=== PATIENT | male | born 1950 | race Caucasian/White ===

== ENCOUNTER 2017-02-27 16:18 | Inpatient (IN) | payer OTHER, MEDICARE ==
--- NOTE | ~2017-02-27 | DS ---
Discharge Summary [facility] [address] [place]. [address] NAME: MOOK ESTEVEZ : 52 STATUS : DIS IN PAT#: [id number] AGE: 66 ADM/REG DATE : 02/27/17 MR#: [id number] REPORT SERV DATE: 03/04/17 DICTATED BY: LANCE MARMOLEJO DATE: 03/03/17 REPORT STATUS : Draft TRANSCRIBED BY: MODL DATE: 03/03/17 ADMISSION DATE: 02/27/2017 DISCHARGE DATE: 03/03/2017 DISCHARGE DIAGNOSES: 1. Acute left foot cellulitis. 2. Foreign body in the left heel, status post removal. 3. Leukocytosis. 4. New onset of diabetes. 5. Urinary tract infection with Klebsiella. 6. Hypertension. 7. Gastroesophageal reflux disease. CONSULTANTS: None. PROCEDURES: None. HOSPITAL COURSE: This is a 66-year-old gentleman who was admitted to the hospital with a left foot cellulitis. For details, please refer to excellent H and P dictated by Dr. Christopher Hardin. In summary, the patient was admitted and he was started on IV antibiotics to include vancomycin and cefepime. The patient was also found to have a urinary tract infection on admission, and thus the patient was treated for both the urinary tract infection as well as left leg cellulitis. The patient was also seen by Wound Care for the small wound left behind after removing a small foreign body. His wound on the bottom of his heel was actually very small and the main issue was his left leg cellulitis. The patient did respond really well to IV antibiotic therapy. The patient's cellulitis margin visibly decreased on daily basis to almost disappearing by the day of discharge. During the hospital, the patient's urine culture came back positive for pansensitive Klebsiella. The patient's wound culture grew Enterococcus that was also pansensitive. The patient was seen by Physical Therapy, who recommended discharge to home with home health. The patient is now being discharged home with home health including physical therapy and wound care. It was emphasized to the patient that with his new onset of diabetes, the patient may get further complications with the cellulitis as well as a small wound that he has and it would be crucial to have appropriate wound care. For his new onset of diabetes, the patient's hemoglobin A1c was found to be 7.7. The patient was started on oral metformin with fair glucose control with his blood sugars averaging less than 200 during this hospital stay without needing additional sliding scale NovoLog coverage. The patient was given diabetic education and the patient is being discharged to home with a prescription for blood glucose monitor, lancets, and testing strips. DISPOSITION: Home. DISCHARGE MEDICATIONS: 1. Metformin 500 mg p.o. b.i.d. Discharge Summary [address] [address] NAME: MOOK ESTEVEZ : 52 STATUS : DIS IN PAT#: [id number] AGE: 66 ADM/REG DATE : 02/27/17 MR#: [id number] REPORT SERV DATE: 03/04/17 DICTATED BY: LANCE MARMOLEJO DATE: 03/03/17 REPORT STATUS : Draft TRANSCRIBED BY: CECIL DATE: 03/03/17 2. Levaquin 750 mg p.o. daily times additional four days. Otherwise, no medication changes. FOLLOWUP: Please follow up with PCP in the next one to two weeks. A total of 25 minutes spent in coordinating this patient's discharge today. DICTATED BY: Lance Marmolejo MD Bibi/CECIL Lance Marmolejo MD / [id number] CC: Lance Marmolejo MD
--- NOTE | ~2017-02-27 | HP ---
History And Physical [place] [id number] [facility] [place]. [address] NAME: MOOK RAMOS : 52 STATUS : ADM IN PAT#: [id number] AGE: 66 ADM/REG DATE : 02/27/17 MR#: [id number] REPORT SERV DATE: 02/28/17 DICTATED BY: CHRISTOPHER MCKEON DATE: 02/27/17 REPORT STATUS : Draft TRANSCRIBED BY: MODL DATE: 02/27/17 DATE OF ADMISSION: 02/27/2017 CHIEF COMPLAINT: Left foot pain, swelling, and redness. HISTORY OF PRESENT ILLNESS: This is a 66-year-old male with a history of diabetes mellitus, hypertension, gastroesophageal reflux disease, who presents to the emergency room at [facility] with the above-mentioned complaint. History is obtained from the patient and reviewing data available on the [employer] system. I spoke to Dr. Hoskins, the ER physician as well. 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 But on Monday, his foot started hurting, there was swelling in the foot around the ankle and he thought he had an infection. He did not know that there was a foreign body, did not feel anything because of his diabetic foot. He, however, knew there was an infection going on. He went to the walk-in clinic where he goes for his primary care, was looked there and they immediately asked him to go over to the emergency room right away. In the emergency room, initial workup revealed cellulitis of his left foot along with a urinary tract infection and leukocytosis. He had hyperglycemia as well. X-ray of his left foot showed a small piece of foreign body remaining in the foot and this was removed by forceps and gentle teasing by the ER physician. A repeat foot x-ray was taken and it is clear. Hospitalist Service is asked to admit him for diabetic foot ulcer, IV antibiotics, and care. At the time of my evaluation, he denied any chest pain, palpitations, or orthopnea. He had no cough, hemoptysis, night sweats, or weight loss. He did not have any recent falls or loss of consciousness. No history of fevers, chills, nausea, vomiting, or diarrhea. No history of hematemesis, hematochezia, or hematuria. No other history of recent travel or exposures other than those mentioned above. PAST MEDICAL HISTORY: Significant for history of hypertension and gastroesophageal reflux disease. He says he has never been formally diagnosed with diabetes, although he has family history on both sides his parents. SOCIAL HISTORY: He uses snuff and has been using it for many years. Before that he used to smoke a pipe as well. 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 FAMILY HISTORY: Noncontributory other than the strong family history of diabetes. REVIEW OF SYSTEMS: As in the history of present illness. All other systems were reviewed in detail and are quite unremarkable. History And Physical [address] [place]. [address] NAME: MOOK RAMOS : 52 STATUS : ADM IN [facility]#: [id number] AGE: 66 ADM/REG DATE : 02/27/17 MR#: [id number] REPORT SERV DATE: 02/28/17 DICTATED BY: CHRISTOPHER MCKEON DATE: 02/27/17 REPORT STATUS : Draft TRANSCRIBED BY: CECIL DATE: 02/27/17 PHYSICAL EXAMINATION: GENERAL: This is a pleasant 66-year-old, not in any acute distress. HEENT: His head is atraumatic, normocephalic. He is alert, awake, and oriented to time, place, and person. Pupils are equal, reacting to light, and accommodating. External ocular muscles are intact. Membranes are moist and pink. Sclerae are nonicteric. NECK: Supple with no jugular venous distention, lymphadenopathy, or thyromegaly. LUNGS: Clear to auscultation with no wheezes, rubs, or crackles. HEART: Heart sounds were regular with no murmurs, rubs, or gallops. ABDOMEN: Soft, nontender. Bowel sounds are present. EXTREMITIES: Show swelling, redness in the left lower extremity and cellulitis coming all the way almost up to the knee. There is a small puncture wound in the sole of the foot at the heel with some purulent appearing discharge as well. The right lower extremity appears to be normal. There is no cyanosis, clubbing, or effusions. NEUROLOGIC: Appears to be grossly intact. No focal sensory or motor deficits. He has diabetic neuropathy in both legs. VITAL SIGNS: His vital signs today show a temperature of 99.0, pulse 81, respirations 18 a minute, blood pressure is 146/70, oxygen saturations are 98%, breathing 2 L of oxygen via nasal cannula. LABORATORY DATA: Reviewed on the [employer] system showed a sodium of 133, potassium of 4.1, chloride 100, CO2 of 24, BUN was 15 with a creatinine of 1.10, and glucose was 292. [place] [address], hemoglobin was 13.3 with a hematocrit of 37.7, and platelet count was 284,000. His MCV was 87.1. Urinalysis showed large leukocyte esterase, nitrite was negative. There were greater than 182 wbc's and occasional bacteria. X-ray of the left foot was reviewed by me on the PACS today and interpreted by me. The initial picture showed a foreign body which was just under the skin peripherally. The repeat film was also reviewed. IMPRESSION: 1. Acute left foot cellulitis. 2. Foreign body in the left foot. 3. Leukocytosis. 4. Diabetes mellitus with hyperglycemia. 5. Urinary tract infection. 6. Hypertension. 7. Gastroesophageal reflux disease. PLAN: We will admit Mr. Ramos to the Hospitalist Service with defensive monitoring. We will obtain cultures, start him on empiric IV antibiotics. We will start him on vancomycin and Zosyn intravenously for now with full coverage for the Staph and Pseudomonas as well. A small foreign body retained in his left foot in the heel was removed by gentle teasing and removal with a forceps in the emergency room. This was done by Dr. Hoskins. We will go ahead and check his lactate, procalcitonin, and cortisol levels. We will also get blood sugars under control with NovoLog given subcutaneously per sliding scale at the level 3 or above. I will go ahead and check his A1c as well. We will follow his home medications and treatments. Place him on unfractionated heparin for DVT prophylaxis while here. I have History And Physical [address] [place]. [address] NAME: MOOK RAMOS : 52 STATUS : ADM IN [facility]#: [id number] AGE: 66 ADM/REG DATE : 02/27/17 MR#: [id number] REPORT SERV DATE: 02/28/17 DICTATED BY: CHRISTOPHER MCKEON DATE: 02/27/17 REPORT STATUS : Draft TRANSCRIBED BY: CECIL DATE: 02/27/17 discussed the above plans with the patient. His questions were answered and he is agreeable to the above recommendations. Hospitalist Service will be following him during his stay here. /CECIL Christopher Mckeon M.D. / [id number] CC: Ta Najera MD
[2017-02-27 16:39] LABS: BASOPHILS 0.2 %; BASOPHILS ABSOLUTE 0.04 10/3/uL (0.0-0.16); EOSINOPHILS 0.4 %; EOSINOPHILS ABSOLUTE 0.09 10/3/uL (0.0-0.53); ER CBC TAT 0 Hrs 07 Mins; HEMATOCRIT 37.7 % (40.0-51.0); HEMOGLOBIN 13.3 g/dL (13.6-17.8); IMMATURE GRANULOCYTES 0.8 %; IMMATURE GRANULOCYTES ABSOLUTE 0.18 10/3/uL (0.0-0.11); LYMPHOCYTES 7.6 %; LYMPHOCYTES ABSOLUTE 1.72 10/3/uL (0.67-4.30); MEAN CORPUS HGB CONC 35.3 g/dL (32.0-36.0); MEAN CORPUSCULAR HEMOGLOB 30.7 pg (26.0-34.0); MEAN CORPUSCULAR VOLUME 87.1 fL (80-100); MEAN PLATELET VOLUME 9.7 fL (9.2-13.0); MONOCYTES 8.7 %; MONOCYTES ABSOLUTE 1.97 10/3/uL (0.21-1.20); NEUTROPHILS 82.3 %; NEUTROPHILS ABSOLUTE 18.53 10/3/uL (2.02-8.40); PLATELET COUNT 284 10/3/uL (150-400); RED CELL COUNT 4.33 10/6/uL (4.7-6.1); WHITE BLOOD CELLS 22.5 10/3/uL (4.5-10.5)
[2017-02-27 16:43] LABS: MANUAL DIFF NO %
[2017-02-27 16:54] LABS: A/G RATIO 0.9 (0.7-1.9); ALBUMIN 3.3 G/DL (3.5-5.0); ALKALINE PHOSPHATASE 86 U/L (45-117); BUN (BLOOD UREA NITROGEN) 15 MG/DL (6-23); CALCIUM, SERUM 8.7 MG/DL (8.5-10.4); CHLORIDE, SERUM 100 MMOL/L (96-112); CO2 (CARBON DIOXIDE) 24 MMOL/L (24-34); GFR AFRICAN AMERICAN 81 ML/MIN (>=60); GFR NON AFRICAN AMERICAN 70 ML/MIN (>=60); GLOBULIN 3.7 G/DL (2.5-4.1); GLUCOSE, SERUM 292 MG/DL (60-99); POTASSIUM, SERUM 4.1 MMOL/L (3.5-5.3); SGOT(AST) 11 U/L (5-40); SGPT(ALT) 19 U/L (5-65); SODIUM, SERUM 133 MMOL/L (135-148); TOTAL BILIRUBIN 0.9 MG/DL (0-1.2)
[2017-02-27 16:57] LABS: ASCORBIC ACID (UR NOT ORDER) NEG (NEG); BILIRUBIN, URINE NEGATIVE (NEG); ER URINALYSIS TAT 0 Hrs 18 Mins; KETONE, URINE NEGATIVE (NEG); LEUKOCYTE ESTERASE(NOT OR LARGE (NEG); NITRITE (URINE) NEG (NEG); WBC (NOT ORDERED) (RFLEX) > 182 (0-5)
[2017-02-27] MEDS ORDERED: PRILO PO (21:42)
[2017-02-27] MEDS ORDERED: ALLEGRA180 PO (21:43)
[2017-02-28 09:39] LABS: BASOPHILS 0.3 %; BASOPHILS ABSOLUTE 0.05 10/3/uL (0.0-0.16); EOSINOPHILS ABSOLUTE 0.32 10/3/uL (0.0-0.53); HEMATOCRIT 35.9 % (40.0-51.0); HEMOGLOBIN 12.3 g/dL (13.6-17.8); IMMATURE GRANULOCYTES 1.1 %; IMMATURE GRANULOCYTES ABSOLUTE 0.18 10/3/uL (0.0-0.11); LYMPHOCYTES 13.7 %; LYMPHOCYTES ABSOLUTE 2.18 10/3/uL (0.67-4.30); MEAN CORPUS HGB CONC 34.3 g/dL (32.0-36.0); MEAN CORPUSCULAR HEMOGLOB 30.2 pg (26.0-34.0); MEAN CORPUSCULAR VOLUME 88.2 fL (80-100); MEAN PLATELET VOLUME 9.6 fL (9.2-13.0); MONOCYTES 6.2 %; MONOCYTES ABSOLUTE 0.98 10/3/uL (0.21-1.20); NEUTROPHILS 76.7 %; NEUTROPHILS ABSOLUTE 12.15 10/3/uL (2.02-8.40); PLATELET COUNT 256 10/3/uL (150-400); RBC DISTRIBUTION WIDTH 14.1 % (12.0-16.0); RED CELL COUNT 4.07 10/6/uL (4.7-6.1); WHITE BLOOD CELLS 15.9 10/3/uL (4.5-10.5)
[2017-02-28 09:41] LABS: MANUAL DIFF NO %
[2017-02-28 09:49] LABS: BUN (BLOOD UREA NITROGEN) 15 MG/DL (6-23); CALCIUM, SERUM 8.2 MG/DL (8.5-10.4); CHLORIDE, SERUM 102 MMOL/L (96-112); CO2 (CARBON DIOXIDE) 25 MMOL/L (24-34); CREATININE 0.79 MG/DL (0.70-1.30); GFR AFRICAN AMERICAN 109 ML/MIN (>=60); GFR NON AFRICAN AMERICAN 94 ML/MIN (>=60); GLUCOSE, SERUM 251 MG/DL (60-99); PHOSPHORUS, SERUM 2.6 MG/DL (2.5-4.5); POTASSIUM, SERUM 3.9 MMOL/L (3.5-5.3); SODIUM, SERUM 133 MMOL/L (135-148)
[2017-03-01 03:47] LABS: BASOPHILS 0.4 %; BASOPHILS ABSOLUTE 0.06 10/3/uL (0.0-0.16); EOSINOPHILS 3.5 %; EOSINOPHILS ABSOLUTE 0.48 10/3/uL (0.0-0.53); HEMATOCRIT 37.2 % (40.0-51.0); HEMOGLOBIN 12.6 g/dL (13.6-17.8); IMMATURE GRANULOCYTES 1.5 %; IMMATURE GRANULOCYTES ABSOLUTE 0.21 10/3/uL (0.0-0.11); LYMPHOCYTES 16.6 %; LYMPHOCYTES ABSOLUTE 2.26 10/3/uL (0.67-4.30); MEAN CORPUS HGB CONC 33.9 g/dL (32.0-36.0); MEAN CORPUSCULAR HEMOGLOB 30.2 pg (26.0-34.0); MEAN CORPUSCULAR VOLUME 89.2 fL (80-100); MEAN PLATELET VOLUME 9.4 fL (9.2-13.0); MONOCYTES 8.2 %; MONOCYTES ABSOLUTE 1.12 10/3/uL (0.21-1.20); NEUTROPHILS 69.8 %; NEUTROPHILS ABSOLUTE 9.49 10/3/uL (2.02-8.40); PLATELET COUNT 273 10/3/uL (150-400); RED CELL COUNT 4.17 10/6/uL (4.7-6.1); WHITE BLOOD CELLS 13.6 10/3/uL (4.5-10.5)
[2017-03-01 03:48] LABS: MANUAL DIFF NO %
[2017-03-01 04:02] LABS: BUN (BLOOD UREA NITROGEN) 17 MG/DL (6-23); CALCIUM, SERUM 8.5 MG/DL (8.5-10.4); CHLORIDE, SERUM 102 MMOL/L (96-112); CO2 (CARBON DIOXIDE) 25 MMOL/L (24-34); CREATININE 0.79 MG/DL (0.70-1.30); GFR AFRICAN AMERICAN 109 ML/MIN (>=60); GFR NON AFRICAN AMERICAN 94 ML/MIN (>=60); POTASSIUM, SERUM 3.9 MMOL/L (3.5-5.3); SODIUM, SERUM 135 MMOL/L (135-148)
[2017-03-01 04:07] LABS: GLUCOSE, SERUM 170 MG/DL (60-99); PHOSPHORUS, SERUM 3.4 MG/DL (2.5-4.5)
[2017-03-02 04:36] LABS: BASOPHILS 0.5 %; BASOPHILS ABSOLUTE 0.07 10/3/uL (0.0-0.16); EOSINOPHILS 4.2 %; EOSINOPHILS ABSOLUTE 0.56 10/3/uL (0.0-0.53); HEMATOCRIT 36.9 % (40.0-51.0); HEMOGLOBIN 12.7 g/dL (13.6-17.8); IMMATURE GRANULOCYTES 1.9 %; IMMATURE GRANULOCYTES ABSOLUTE 0.25 10/3/uL (0.0-0.11); LYMPHOCYTES 17.2 %; LYMPHOCYTES ABSOLUTE 2.29 10/3/uL (0.67-4.30); MEAN CORPUS HGB CONC 34.4 g/dL (32.0-36.0); MEAN CORPUSCULAR HEMOGLOB 30.5 pg (26.0-34.0); MEAN CORPUSCULAR VOLUME 88.5 fL (80-100); MEAN PLATELET VOLUME 9.5 fL (9.2-13.0); MONOCYTES 7.1 %; MONOCYTES ABSOLUTE 0.95 10/3/uL (0.21-1.20); NEUTROPHILS 69.1 %; NEUTROPHILS ABSOLUTE 9.18 10/3/uL (2.02-8.40); PLATELET COUNT 308 10/3/uL (150-400); RBC DISTRIBUTION WIDTH 13.8 % (12.0-16.0); RED CELL COUNT 4.17 10/6/uL (4.7-6.1); WHITE BLOOD CELLS 13.3 10/3/uL (4.5-10.5)
[2017-03-02 04:40] LABS: MANUAL DIFF NO %
[2017-03-03 05:05] LABS: HEMATOCRIT 36.6 % (40.0-51.0); HEMOGLOBIN 12.5 g/dL (13.6-17.8); MEAN CORPUS HGB CONC 34.2 g/dL (32.0-36.0); MEAN CORPUSCULAR HEMOGLOB 30.2 pg (26.0-34.0); MEAN CORPUSCULAR VOLUME 88.4 fL (80-100); MEAN PLATELET VOLUME 9.6 fL (9.2-13.0); PLATELET COUNT 333 10/3/uL (150-400); RED CELL COUNT 4.14 10/6/uL (4.7-6.1); WHITE BLOOD CELLS 15.5 10/3/uL (4.5-10.5)
[2017-03-03 05:08] LABS: MANUAL DIFF YES %
[2017-03-03 05:23] LABS: BUN (BLOOD UREA NITROGEN) 14 MG/DL (6-23); CALCIUM, SERUM 8.6 MG/DL (8.5-10.4); CHLORIDE, SERUM 102 MMOL/L (96-112); CO2 (CARBON DIOXIDE) 25 MMOL/L (24-34); CREATININE 0.71 MG/DL (0.70-1.30); GFR AFRICAN AMERICAN 114 ML/MIN (>=60); GFR NON AFRICAN AMERICAN 98 ML/MIN (>=60); GLUCOSE, SERUM 149 MG/DL (60-99); POTASSIUM, SERUM 3.9 MMOL/L (3.5-5.3); SODIUM, SERUM 136 MMOL/L (135-148)
[2017-03-03 06:53] LABS: BAND NEUTROPHILS 3 %; BASOPHILS 2 %; BASOPHILS ABSOLUTE (CALC) 0.31 10/3/uL (0.0-0.16); EOSINOPHILS 2 %; EOSINOPHILS ABSOLUTE (CALC) 0.31 10/3/uL (0.0-0.53); LYMPHOCYTES 12 %; LYMPHOCYTES ABSOLUTE (CALC) 1.86 10/3/uL (0.67-4.30); MONOCYTES 12 %; MONOCYTES ABSOLUTE (CALC) 1.86 10/3/uL (0.21-1.20); NEUTROPHILS ABSOLUTE (CALC) 11.16 10/3/uL (2.02-8.40); PLATELET ESTIMATE ADQ (ADEQUATE); SEGMENTED NEUTROPHIL (0) 69 %; TOTAL NUCLEATED CELLS 100
[2017-03-03] MEDS ORDERED: GLUCPH PO (12:46)
[2017-03-03] MEDS ORDERED: LEVAQUIN750 MG PO (12:46)
[2017-03-05] MEDS ORDERED: ADVIL PO (21:28)
== END 2017-03-03 15:37 | disposition home health service (06) | DRG 638 ==
LOC: ER 16:18 → 4EA 22:39
PROVIDERS: Emergency Medicine; Internal Medicine; Internal Medicine Pulmonary Disease
PROC: 0HCNXZZ Extirpation of Matter from Left Foot Skin, External Approach (ICD-10-PCS; principal; 2017-02-27)
DX: E11.628 Type 2 diabetes mellitus with other skin complications (principal); L03.116 Cellulitis of left lower limb; L97.521 Non-pressure chronic ulcer of other part of left foot limited to breakdown of skin; E11.621 Type 2 diabetes mellitus with foot ulcer; E11.65 Type 2 diabetes mellitus with hyperglycemia; N39.0 Urinary tract infection, site not specified; I10 Essential (primary) hypertension; K21.9 Gastro-esophageal reflux disease without esophagitis; S90.852A Superficial foreign body, left foot, initial encounter; X58.XXXA Exposure to other specified factors, initial encounter; B96.1 Klebsiella pneumoniae [K. pneumoniae] as the cause of diseases classified elsewhere; B95.2 Enterococcus as the cause of diseases classified elsewhere
CPT/HCPCS: 73630-LT; 80048; 80053; 80202; 81001; 82962; 83036; 83605; 83735; 84100; 84145; 85025; 87040; 87070; 87077; 87086; 87186; 87205; 97110-GP; 97116-GP; 97162-GP; 99285; A9270-GY; G8978-CK-GP; G8979-CJ-GP; J0692; J3370